=== PATIENT | male | born 1980 | race American Indian/Alaskan Native ===

== ENCOUNTER 2017-10-01 06:20 | Day surgery (SDC) | payer OTHER ==
[~2017-10-01 06:20] MED LIST: ANCEF/STERILE WATER 2 GM/20 ML 2 GM/20 ML SYRINGE IV SCH; ANTIBIOTIC OINT TP ONE; LACTATED RINGERS 1,000 ML IV SCH; MARCAINE 0.25% INFILTRATI ONE; NACL 0.9% IR ONE; NEOSPORIN GU IR ONE; VERSED IV NR; XYLOCAINE 1% 20 mL INFILTRATI ONE
[2017-10-01] MEDS ORDERED: XYLOCAINE 1% 20 mL ONE (06:45)
[2017-10-01] MEDS ORDERED: DECADRON ONE (06:46)
[2017-10-01] MEDS ORDERED: ANTIBIOTIC OINT TP ONE (06:46)
[2017-10-01] MEDS ORDERED: MARCAINE 0.25% INFILTRATI ONE (06:46)
[2017-10-01] MEDS ORDERED: NACL BACTERIOSTATIC INFILTRATI ONE (06:48)
--- NOTE | 2017-10-01 07:17 | Anesthesia Day of Surgery ---
Anesthesia Day of Surgery - Day of Surgery Patient Examined: Yes Patient H&P Reviewed: Yes Patient is NPO: Yes
--- NOTE | 2017-10-01 07:17 | Anesthesia Consultation ---
Anesthesia Consult and Med Hx Date of service: 10/01/17 - Airway Anesthetic Teeth Evaluation: Good ROM Head & Neck: Adequate Mental/Hyoid Distance: Adequate Mallampati Class: Class III Intubation Access Assessment: Possibly Difficult - Pulmonary Exam CTA: Yes - Cardiac Exam Cardiac Exam: RRR - Pre-Operative Health Status ASA Pre-Surgery Classification: ASA3 Proposed Anesthetic Plan: General - Pulmonary Hx Smoking: Yes (1/4 PPD X 20 YRS) Hx Sleep Apnea: No (ANEUDY PRE SCREEN HIGH RISK.) - Cardiovascular System Hx Hypertension: Yes (DOES NOT TAKE MEDS REGULAR) - Hematic Hx Anemia: Yes (NOT RECENT) - Other Systems Hx Alcohol Use: Yes (BEER QD) Hx Substance Use: Yes (MARIJUANA 2-3 X PER WEEK) Hx Cancer: No Hx Obesity: Yes
[2017-10-01] MEDS ORDERED: VERSED ONE (07:24)
[2017-10-01] MEDS ORDERED: DILAUDID ONE ×2 (07:24→09:08)
[2017-10-01 07:25] LABS: Basophils % (Auto) 0.3 % (0.0-1.8); Eosinophils # (Auto) 0.1 K/mm3 (0.0-0.4); Hematocrit 37.3 % (35.5-45.6); Hemoglobin 13.1 gm/dl (11.8-15.2); Lymphocytes # (Auto) 1.8 K/mm3 (1.2-5.4); Lymphocytes % (Auto) 29.4 % (13.4-35.0); Mean Corpuscular HGB Conc 35 % (32-34); Mean Corpuscular Hemoglobin 35 pg (28-32); Mean Corpuscular Volume 99 fl (84-94); Monocytes # (Auto) 0.6 K/mm3 (0.0-0.8); Monocytes % (Auto) 10.3 % (0.0-7.3); Platelet Count 212 K/mm3 (140-440); Red Blood Count 3.76 M/mm3 (3.65-5.03); Red Cell Distribution Width 12.4 % (13.2-15.2)
[2017-10-01] MEDS ORDERED: DIPRIVAN 10 MG/ML IV ONE ×3 (07:25→08:22)
[2017-10-01] MEDS ORDERED: XYLOCAINE MPF 2% ONE (07:28)
[2017-10-01] MEDS ORDERED: PROAIR IH NR (07:30)
[2017-10-01 07:37] LABS: BUN/Creatinine Ratio 20; Blood Urea Nitrogen 18 mg/dL (9-20); Calcium 9.2 mg/dL (8.4-10.2); Hemolysis Index 41
[2017-10-01] MEDS ORDERED: NEOSPORIN GU IR ONE (08:07)
[2017-10-01] MEDS ORDERED: NORMODYNE IV ONE (08:32)
[2017-10-01] MEDS ORDERED: LACTATED RINGERS 1,000 ML ONE ×2 (08:53→08:56)
[2017-10-01] MEDS: DILAUDID IV PRN ×2 (09:09→09:20)
[2017-10-01] MEDS ORDERED: ZOFRAN IV PRN (09:37)
[2017-10-01] MEDS ORDERED: PERCOCET 5/325 PO PRN (09:37)
[2017-10-01 13:35] VITALS: BP 147/90
--- NOTE | 2017-10-01 14:26 | Post Anesthesia Evaluation ---
- Post Anesthesia Evaluation Patient Participated: Yes Airway Patent: Yes Stable Respiratory Function: Yes Nausea/Vomiting: No Temp > 96.8F: Yes Pain Manageable: Yes Adequeate Hydration: Yes Anesthesia Complications: No
--- NOTE | 2017-10-02 07:23 | XRay Report ---
RIGHT CALCANEUS, ONE VIEW History: Osteomyelitis. Findings: A single lateral fluoroscopic image of the right calcaneus was obtained during surgery. There are sclerotic changes in the right calcaneus but no obvious fracture or bone lesion. Please refer to the procedural report by Dr. Najera as needed. Impression: Sclerotic changes in the right calcaneus.
--- NOTE | 2017-10-04 16:45 | Operative Report ---
PREOPERATIVE DIAGNOSIS: Osteomyelitis with open wound, plantar calcaneus. POSTOPERATIVE DIAGNOSIS: Osteomyelitis with open wound, plantar calcaneus. SURGICAL PROCEDURE: Calcaneal exostectomy with primary closure of wound, right foot. ANESTHESIA: Local with monitored anesthesia care. TOURNIQUET: Pneumatic ankle tourniquet right ankle. ESTIMATED BLOOD LOSS: Less than 20 mL. PROCEDURE IN DETAIL: The patient was brought to the operating room and placed on the operating table in the supine position. The patient was given 2 grams of Ancef prophylactically. After intravenous sedation, the patient was given 12 mL of 1:1 mixture of 0.25% Marcaine plus 1% lidocaine plain and infiltrated into the affected area. Status post cleaned with Betadine and alcohol. At this time, the foot was then scrubbed, prepped in the usual aseptic manner. An Esmarch was used to exsanguinate the lower extremity to 250 mmHg and at this time, the foot was scrubbed once again at the plantar surface and aggressive debridement was used superficially at the wound. This debridement was used with a #15 blade to identify an open full thickness wound down to the fascia. At this time, semi-converging elliptical incision was made to incorporate the open wound, which was about 0.5-0.5 cm in diameter. It was deepened with both sharp and blunt dissection. Let it be noted there was a full thickness and cut with a #10 blade and was removed as a unit to be passed from the operative field to be sent to the laboratory for further diagnosis and evaluation. There was noted to be nonviable tissue throughout the dissection, which was also removed and passed from the operative field. Plantar dissection of the fascia was identified and it was noted to be prominent bone sporadically at the plantar surface of the calcaneus and which was resected with rongeur and sagittal saw. These bone was passed from the operative field to be sent to the laboratory for further diagnosis and evaluation. At this time, deep cultures were performed consisting of aerobic, anaerobic and fungal cultures. The area was flushed copiously with normal sterile saline with gentamicin mix and bone wax was applied. The area was closed deep with 3-0 Vicryl and subcuticular closure was performed with 2-0 and 3-0 Prolene. The patient tolerated anesthesia and procedure well. The area was dressed with Adaptic, bacitracin ointment, sterile compression dressing and Coban. The patient was placed in an Aircast boot status post deflation of the tourniquet and there was a prompt hyperemic response to all digits of the affected toes. The patient will be transferred to recovery and discharged home with both written and oral postoperative instructions. JOB# [id number] SIDNEY/NTS
== END 2017-10-01 11:20 | disposition home or self-care (01) ==
LOC: OR 06:20
PROVIDERS: ATTEND Podiatrist Foot & Ankle Surgery
DX: M86.8X7 Other osteomyelitis, ankle and foot (principal); F17.210 Nicotine dependence, cigarettes, uncomplicated; I10 Essential (primary) hypertension
CPT/HCPCS: 28118; 36415; 73650; 80048; 85025; 87075; 87076; 87102; 87116; 87186; 87220; 88304; A4217; J0690; J1100; J1170; J2250; J2704; J7120; 88309; 88311